=== PATIENT | female | born 1945 | race Caucasian/White ===

== ENCOUNTER 2019-07-21 14:39 | Outpatient (RCR) | payer MEDICARE, SELFPAY ==
--- NOTE | 2019-07-21 16:04 | PTOPEVAL ---
PHYSICAL THERAPY EVALUATION AND PLAN OF CARE 07-21-2019 The PT evaluation was completed today for the diagnosis of B LE lymphedema and the plan of treatment is 3x/week for 6 weeks. Thank you for referring Mrs. Walters to [facility]. Please review, sign, date and return this plan of care CAITLIN. I agree with and certify that the following plan of care is medically necessary. Referring Physician Date Attending Provider: Ilya Hale MD *PT Outpatient Evaluation Start: 07/21/19 14:58 Document 07/21/19 14:58 CRISTIAN (Rec: 07/21/19 16:04 CRISTIAN [id number]) Outpatient Past Medical History Neurological History Hx Dementia Yes Hx Transient Ischemic Attacks (TIA) Yes Cardiovascular History Hx Hypercholesterolemia Yes Respiratory History Hx Respiratory Disorders No Significant History Gastrointestinal History Hx Gastrointestinal Disorders No Significant History Musculoskeletal History Hx Joint Replacement Yes: L TKR Hx Other Musculoskeletal Disorders Yes: fell with R shoulder injury-non surg/ R RTC surg Endocrine History Hx Diabetes Yes Evaluation Information Problem Diagnosis B LE lymphedema Onset several years Prior Level of Function Comments Additional Prior Level of Function live in assisted living, Comments without assistive device, walk through out facility; no recent falls; indep with bathing and dressing; able to put on shoes and socks; has nurse reviewer cut toe nails regularly; Pain Assessment Timing of Pain Assessment Timing of Pain Assessment Assessment Pain Scale Pain Scale Used Numeric (1 - 10) Self Report Pain Assessment Bilateral Leg(s) Reported Pain Level 0 Pain Score Pain Score 0: Self Report Lower Extremity Range of Motion General Lower Extremity Range of Motion Reason Not Measured WNL/Left,WNL/Right Transfer Assessment Bed Transfer Assessment Bed Transfer Assistive Devices None Sit to Stand Bed Transfer Ability Independent Stand to Sit Bed Transfer Ability Independent Ability to Transfer To/From the Bed Independent Chair Transfer Assessment Chair Transfer Assistive Devices None Ambulation Assistive Devices None Chair Transfer Destination Ambulatory Sit to Stand Chair Transfer Ability Independent Stand to Sit Chair Transfer Ability Independent Ability to Transfer In/Out of Chair Independent Bed Mobility Assessment Bed Mobility Bed Mobility Assistive Devices None Bed Type Mat Overall Bed Mobility Ability Independent Gait Assessment Gait Assessment Ambulation Assistive Devices None Ambulatio
--- NOTE | 2019-08-05 13:02 | PCPTNOTE ---
PHYSICAL THERAPY DISCHARGE 08-05-2019 Attending Provider: Ilya Hale MD Patient:Dominique Walters Date of :1945 Mrs. Barrera attended the PT evaluation on 07-21-2019 for the diagnosis of LE lymphededma. She called today and canceled all of her appointments due to coronavirus, therefore she will be discharged from therapy at this time. The goals were not assessed. Thank you for referring Mrs. Barrera to [facility]. Please review, sign, date and return this discharge summary CAITLIN. I have been updated about the patient's current status and I agree with discharge from the above service at this time. Referring Physician Date
== END 2019-08-09 09:29 | disposition home or self-care (01) ==
LOC: ANHPT 14:39
PROVIDERS: PCP Family Medicine; Visit Provider Family Medicine
DX: I89.0 Lymphedema, not elsewhere classified (principal)
CPT/HCPCS: 97161

== ENCOUNTER 2020-06-05 05:05 | Emergency (ER) | payer MEDICARE, SELFPAY ==
--- NOTE | ~2020-06-05 | XR_ITS ---
EXAMINATION: XR shoulder RT min 2V EXAM DATE: 06/05/2020 06:26 INDICATION: Initial encounter following injury, with pain of the right shoulder. TECHNIQUE: Frontal, oblique projections right humerus. There are no prior studies for comparison. FINDINGS: There is acute right humeral neck fracture with mild comminution, a vertical fracture line extending through portion of the greater tuberosity. No dislocation. The acromioclavicular joint spa ce appears wide, possibly postoperative-this appears unchanged compared to an x-ray from 2018. The so ft tissue is unremarkable. IMPRESSION: 1. Acute comminuted right humeral neck/greater tuberosity fracture. 2. Chronic wide acromioclavicular joint space, could be postoperative. Reviewed, dictated and finalized at location A. [facility]
[2020-06-05 05:04] VITALS: BP 164/61; PULSE 94; RESP 20; TEMP 35.8; O2SAT 100
[2020-06-05 05:16] VITALS: BP 163/73; O2SAT 100
[2020-06-05 05:17] VITALS: O2SAT 100
[2020-06-05 05:31] VITALS: BP 169/66
--- NOTE | 2020-06-05 06:06 | PC.NURSE ---
Patient taken to xray.
--- NOTE | 2020-06-05 06:21 | ED.FALL ---
HPI - Fall General Chief Complaint: Fall Stated Complaint: fall/ shoulder pain History of Present Illness HPI Narrative: Patient is a 74-year-old female with history of dementia who presents to the ER from her snf after a fall. Patient was coming out of the bathroom and had a witnessed fall by staff members. She fell onto her right side. She is complaining of right shoulder pain. She does not want to use arm after the fall. She did not strike her head or lose consciousness. Related Data Home Medications Medication Instructions Recorded Confirmed amlodipine 10 mg PO DAILY 06/05/20 aspirin [Adult Aspirin EC Low 81 mg PO DAILY 06/05/20 Strength] buspirone 15 mg PO BID 06/05/20 cholecalciferol (vitamin D3) 125 mcg PO DAILY 06/05/20 [Vitamin D3] hydrochlorothiazide 12.5 mg PO DAILY 06/05/20 hydroxyzine HCl 25 mg PO TID PRN 06/05/20 melatonin 10 mg PO HS 06/05/20 memantine 10 mg PO BID 06/05/20 metformin 1,000 mg PO BID 06/05/20 pioglitazone [Actos] 45 mg PO DAILY 06/05/20 quinapril 40 mg PO DAILY 06/05/20 Allergies Allergy/AdvReac Type Severity Reaction Status Date / Time Penicillins Allergy Unknown Unknown Verified 06/05/20 05:18 Cat Dander Allergy Mild Itching Uncoded 10/15/16 06:41 Review of Systems Review of Systems: ROS unobtainable: Yes unobtainable due to mental status PMFSH Past Medical History Medical History (Updated 06/05/20 @ 06:53 by Keaton Jerez MD) Anxiety disorder Hyperlipidemia, unspecified Insomnia due to other mental disorder Lymphedema, not elsewhere classified Peripheral vascular disease, unspecified Type 2 diabetes mellitus with diabetic polyneuropathy Unspecified dementia without behavioral disturbance Surgical History Surgical History (Updated 06/05/20 @ 06:23 by Keaton Jerez MD) Presence of left artificial knee joint Family History Family History (Updated 01/06/14 @ 07:13 by DOCTOR UNKNOWN) Mother Cerebrovascular accident Other Diabetes mellitus Family history of osteoarthritis Hypertension Social History Social History Smoking status: Never smoker Alcohol intake: current Exam Narrative: Exam Narrative: GENERAL: Well-appearing, well-nourished, and in no acute distress. HEAD: Normocephalic, atraumatic. CHEST: Clear to auscultation. No respiratory distress. HEART: Regular rate and rhythm. No murmur heard. Normal peripheral pulses. EXTREMITIES: Tender to palpation in the right upper extremity at the shoulder. No obvious deformity. No tenderness at the elbow or hand. Lower extremities with 3+ edema. SKIN: Warm, dry, no rash. NEURO: Alert and oriented x2. PSYCH: Normal mood and affect. Course Course Emergency Course: Discussed with Dr. Roger. Recommends sling and f/u. Vital Signs Vital signs: Vital Signs Temperature 96.5 F L 06/05/20 05:04 Pulse Rate 94 06/05/20 05:04 Respiratory Rate 20 06/05/20 05:04 Blood Pressure 164/61 H 06/05/20 05:04 Pulse Oximetry 100 06/05/20 05:04 Temperature 96.5 F L 06/05/20 05:04 Pulse Rate 90 06/05/20 06:27 Respiratory Rate 20 06/05/20 06:27 Blood Pressure 165/55 H 06/05/20 06:27 Pulse Oximetry 99 06/05/20 06:27 MDM - Fall Imaging Data Radiologist's impression: ITS Impressions Shoulder X-Ray 06/05/20 06:32 IMPRESSION: 1. Acute comminuted right humeral neck/greater tuberosity fracture. 2. Chronic wide acromioclavicular joint space, could be postoperative. Discharge Plan Discharge Clinical Impression: Fracture of neck of humerus, Fracture of greater tuberosity of humerus Patient Disposition: Home, Self-Care Condition: Stable Instructions: Proximal Humerus Fracture (ED) Additional Instructions: Return the ER if you suffer new injury, you have a cold numb arm, or you have additional concerns. Take Slayden as needed for pain. Prescriptions: New hydrocodone-acetaminophen 5-325 mg tablet 1 tab
[2020-06-05 06:27] VITALS: BP 165/55; PULSE 90; RESP 20; O2SAT 99
[2020-06-05] MEDS: HYDROcodone/acetaminophen (*CRX) 5-325 MG TABLET 1 TAB PO (07:01)
--- NOTE | 2020-06-05 07:23 | PC.NURSE ---
contacted [employer] and [facility] to transfer patient home. both companies declined. called [facility] they gave an eta of [phone]
[2020-06-05 07:24] VITALS: BP 169/65; PULSE 91; RESP 18; O2SAT 97
--- NOTE | 2020-06-05 08:05 | PC.NURSE ---
[facility] arrived at 0740
== END 2020-06-05 07:51 ==
PROVIDERS: Emergency Provider Emergency Medicine; PCP Family Medicine
DX: S42.251A Displaced fracture of greater tuberosity of right humerus, initial encounter for closed fracture (principal); S42.211A Unspecified displaced fracture of surgical neck of right humerus, initial encounter for closed fracture; E78.5 Hyperlipidemia, unspecified; E11.42 Type 2 diabetes mellitus with diabetic polyneuropathy; E11.51 Type 2 diabetes mellitus with diabetic peripheral angiopathy without gangrene; F03.90 Unspecified dementia, unspecified severity, without behavioral disturbance, psychotic disturbance, mood disturbance, and anxiety; F51.05 Insomnia due to other mental disorder; F41.9 Anxiety disorder, unspecified; Z79.84 Long term (current) use of oral hypoglycemic drugs; Z79.82 Long term (current) use of aspirin; W18.30XA Fall on same level, unspecified, initial encounter
CPT/HCPCS: 73030; 99284; A4565; A9270